=== PATIENT | female | born 2000 | race Two or more races ===

== ENCOUNTER → 2022-07-19 08:29 | Outpatient (BNVA) | payer OTHER, MEDICAID, SELFPAY | PROVIDERS: PCP Internal Medicine; Visit Provider Hospitalist | DX: Z13.89 Encounter for screening for other disorder (principal) ==

== ENCOUNTER 2022-11-28 08:22 | Outpatient (REF) | payer OTHER, MEDICAID, SELFPAY ==
[2022-11-28 08:43] LABS: MANUAL DIFF FLAG NO
[2022-11-28 08:46] LABS: Venous Blood Gas Refer to POC result
[2022-11-28 08:48] LABS: VBG pCO2 36 mmHg; VBG pH 7.41 (7.32-7.43)
[2022-11-28 08:49] LABS: VBG Base Excess -0.3 mmol/L; VBG HCO3 23 mmol/L (22-26); VBG pO2 55 mmHg
[2022-11-28 09:06] LABS: Basophils Percent Auto 0.4 % (0-2); Eosinophils Absolute Auto 0.1 X10*3/uL (0.0-0.4); Eosinophils Percent Auto 0.9 % (0-4); Hematocrit 45.8 % (37.0-47.0); Hemoglobin 15.1 g/dl (12.0-16.0); Imm Gran Abs Auto 0.03 X10*3/uL (0.00-0.03); Imm Gran Pct Auto 0.3 % (0.0-0.4); Lymphocytes Absolute Auto 2.5 X10*3/uL (1.2-4.9); Lymphocytes Percent Auto 22.2 % (20-40); Mean Corpuscular Hemoglobin 29.5 pg (27.0-33.0); Mean Corpuscular Volume 89.5 fL (80.0-98.0); Mean Platelet Volume 10.8 fL (9.4-12.3); Monocytes Absolute Auto 0.8 X10*3/uL (0.1-1.2); Neutrophils Absolute Auto 7.7 x10*3/uL (2.0-8.3); Neutrophils Percent Auto 69.2 % (45-73); Platelet Count 229 X10*3/uL (160-400); Red Blood Count 5.12 X10*6/uL (4.20-5.50); Red Cell Distribution Width 11.8 % (11.0-16.0); White Blood Count 11.1 X10*3/uL (4.8-10.8)
[2022-11-28 09:40] LABS: Erythrocyte Sedimentation Rate 5 MM/HR (0-20)
[2022-11-30 17:13] LABS: IgA 168 mg/dL (47-310); IgG 1094 mg/dL (600-1640); IgM 70 mg/dL (50-300)
== END 2022-11-28 08:23 | disposition home or self-care (01) ==
LOC: HO.LAB 08:22
PROVIDERS: PCP Internal Medicine; Visit Provider Hospitalist
DX: J96.10 Chronic respiratory failure, unspecified whether with hypoxia or hypercapnia (principal); J98.4 Other disorders of lung; J45.40 Moderate persistent asthma, uncomplicated; M41.9 Scoliosis, unspecified; G47.34 Idiopathic sleep related nonobstructive alveolar hypoventilation; T17.908D Unspecified foreign body in respiratory tract, part unspecified causing other injury, subsequent encounter
CPT/HCPCS: 36415; 82784; 82803; 85025; 85652

== ENCOUNTER 2023-07-07 14:09 | Outpatient (AMB) | payer OTHER, MEDICAID, SELFPAY ==
[2023-07-07 14:10] VITALS: BMI 21.3
--- NOTE | 2023-07-07 14:10 | MHC.OFFVIS ---
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 The patient does have a hard time with her secretions. She does have a cough assist and a percussion vest to help with her secretions. Right now she is very agitated and crying and therefore she is producing more secretions and she is more congested. The family states that this is because she is out of the home. Usually she is clear. She does use the DuoNeb to 4 times a day. She does have oxygen at home. She recently underwent a sleep study because of a history of sleep apnea. Her in-lab study was limited although her AHI was only 3.5 a and her lowest saturation was 84%. Her end-tidal CO2 was normal. The patient did desaturate for about 5 minutes below 88%. She does have oxygen at home she should use it at nighttime. We briefly spoke about tracheostomy. She has had discussions in the past with her providers in felt that she did not need 1 at the time. We did talk about different she to a shins where tracheostomy will be important. Partly if she is having issues with antibodies to to hypercarbia or did as having issues with her secretions. 11/28/2022 the patient is here for a pulmonary follow-up visit. The patient is feeling little better. Less secretions. She has been doing better from a respiratory status. The patient does have a percussion vest and also a cough assist device if she needs it and she really has needed it. She is taking the glycopyrrolate about twice since we last spoke which is reassuring. We also placed her in a promotility agent, azithromycin. This also helped her. We did check an EKG inhaler QT is high normal so therefore since the patient is doing well will hold off on azithromycin for now. If she becomes symptomatic once we stop it did the family can call we can always restarted at a lower dose. As far as her blood work the patient did have a venous gas which is reassuring with a normal pCO2 and a normal pH. The rest of the blood work still pending. 07/07/2023 this is a telehealth visit the patient is nonverbal. I am speaking to her mom and also the nurse caregiver. She has doing a lot better from the secretions. She continues use the nebulized therapy with percussion vest. She also continues with the allergy medicines. We had stopped the azithromycin due to an elevated QT interval. Seems to be doing well off that. We did look at the blood work demonstrating a normal pCO2 normal pH. No need for noninvasive ventilation. Will go ahead and request repeat blood work sometime in the fall 2023. However, the patient has any new issues prior to that she will call for an earlier assessment. [facility] Medical History (Updated 07/07/23 @ 14:30 by Louie Prince MD) Asthma Seizures Encephalitis due to human herpes simplex virus (HSV) Scoliosis Nocturnal hypoxia Chronic respiratory failure Aspiration into airway Chronic restrictive lung disease Social History (Updated 07/19/22 @ 08:41 by MORTEZA Goyal) Patient Tobacco Use Status: Never used Tobacco Review of Systems Const Unobtainable due to mental condition and Unobtainable due to mental status Physical Exam Vital Signs: BMI result Body Mass Index 21.3 Const General: comfortable Assessment & Plan Assessment & Plan (1) Chronic restrictive lung disease: Code(s): J98.4 - Other disorders of lung (2) Aspiration into airway: Code(s): T17.908A - Unspecified foreign body in respiratory tract, part unspecified causing other injury, initial encounter Qualifiers: Encounter type: subsequent encounter Qualified Code(s): T17.908D - Unspecified foreign body in respiratory tract, part unspecified causing other injury, subsequent encounter (3) Nocturnal hypoxia: Code(s): G47.34 - Idiopathic sleep related nonobstructive alveolar hypoventilation (4) Scoliosis: Code(s): M41.9 - Scoliosis, unspecified Qualifiers: Scoliosis type: unspecified scoliosis Spinal region: unspecified Qualified Code(s): M41.9 - Scoliosis, unspecified (5) Asthma: Code(s): J45.909 - Unspecified asthma, uncomplicated Qualifiers: Asthma severity: moderate Asthma persistence: persistent Asthma complication type: uncomplicated Qualified Code(s): J45.40 - Moderate persistent asthma, uncomplicated Plan Continue CPT with cough assist and percussion vest stopped azithromycin 250mg MWF for promotility agent and chronic bronchitis, QTc high normal. If symptomatic off med, then restart at a lower dose Robinal as needed to decrease oral secretions Consider Chlorhexadine mouthwash Nebulizer therapy astelin nasal spray repeat bloodwork 6-8 months continue singulair/claritin F/U 6-8 months Orders: Orders Basic Metabolic Panel Today G47.34 - Idiopathic sleep related nonobstructive alveolar hypoventilation, J45.909 - Unspecified asthma, uncomplicated, J98.4 - Other disorders of lung Venous Blood Gas Today G47.34 - Idiopathic sleep related nonobstructive alveolar hypoventilation, J45.909 - Unspecified asthma, uncomplicated, J98.4 - Other disorders of lung Complete Blood Count Auto Diff Today G47.34 - Idiopathic sleep related nonobstructive alveolar hypoventilation, J45.909 - Unspecified asthma, uncomplicated, J98.4 - Other disorders of lung Immunoglobulin E Today G47.34 - Idiopathic sleep related nonobstructive alveolar hypoventilation, J45.909 - Unspecified asthma, uncomplicated, J98.4 - Other disorders of lung Medications: Changed From azelastine 2 sprays intranasal DAILY PRN allergies To azelastine 2 sprays intranasal DAILY 30 mL 11RF 30 days Telehealth Telehealth Location of provider rendering services: practice address Location of patient: address on file Patient Identification confirmed using: Name, : Yes Telehealth method: voice only Patient verbally consented to treatment: Yes Patient verbally consented to billing insurance company: Yes Patient informed of any privacy concerns related to visit: Yes Coding Level of Care Code Tele Est Pt Level 4 (28277) Diagnoses Chronic restrictive lung disease J98.4 Aspiration into airway, subsequent encounter T17.908D Encounter type: subsequent encounter Nocturnal hypoxia G47.34 Scoliosis, unspecified scoliosis type, unspecified spinal region M41.9 Scoliosis type: unspecified scoliosis Spinal region: unspecified Moderate persistent asthma without complication J45.40 Asthma severity: moderate Asthma persistence: persistent Asthma complication type: uncomplicated Time Spent (min) 15
== END 2023-07-07 14:21 | disposition home or self-care (01) ==
LOC: HO.HPS 14:09
PROVIDERS: PCP Internal Medicine; Visit Provider Hospitalist
DX: J98.4 Other disorders of lung (principal); T17.908D Unspecified foreign body in respiratory tract, part unspecified causing other injury, subsequent encounter; G47.34 Idiopathic sleep related nonobstructive alveolar hypoventilation; J45.40 Moderate persistent asthma, uncomplicated
CPT/HCPCS: 99442

== ENCOUNTER → 2023-07-07 14:09 | Outpatient (BNVA) | payer OTHER, MEDICAID, SELFPAY | PROVIDERS: PCP Internal Medicine; Visit Provider Hospitalist ==

== ENCOUNTER 2024-09-03 13:35 | Outpatient (AMB) | payer OTHER, MEDICAID, SELFPAY ==
[2024-09-03 13:38] VITALS: BP 100/62; PULSE 115; O2SAT 98
--- NOTE | 2024-09-03 13:38 | MHC.OFFVIS ---
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 The patient does have a hard time with her secretions. She does have a cough assist and a percussion vest to help with her secretions. Right now she is very agitated and crying and therefore she is producing more secretions and she is more congested. The family states that this is because she is out of the home. Usually she is clear. She does use the DuoNeb to 4 times a day. She does have oxygen at home. She recently underwent a sleep study because of a history of sleep apnea. Her in-lab study was limited although her AHI was only 3.5 a and her lowest saturation was 84%. Her end-tidal CO2 was normal. The patient did desaturate for about 5 minutes below 88%. She does have oxygen at home she should use it at nighttime. We briefly spoke about tracheostomy. She has had discussions in the past with her providers in felt that she did not need 1 at the time. We did talk about different she to a shins where tracheostomy will be important. Partly if she is having issues with antibodies to to hypercarbia or did as having issues with her secretions. 11/28/2022 the patient is here for a pulmonary follow-up visit. The patient is feeling little better. Less secretions. She has been doing better from a respiratory status. The patient does have a percussion vest and also a cough assist device if she needs it and she really has needed it. She is taking the glycopyrrolate about twice since we last spoke which is reassuring. We also placed her in a promotility agent, azithromycin. This also helped her. We did check an EKG inhaler QT is high normal so therefore since the patient is doing well will hold off on azithromycin for now. If she becomes symptomatic once we stop it did the family can call we can always restarted at a lower dose. As far as her blood work the patient did have a venous gas which is reassuring with a normal pCO2 and a normal pH. The rest of the blood work still pending. 07/07/2023 this is a telehealth visit the patient is nonverbal. I am speaking to her mom and also the nurse caregiver. She has doing a lot better from the secretions. She continues use the nebulized therapy with percussion vest. She also continues with the allergy medicines. We had stopped the azithromycin due to an elevated QT interval. Seems to be doing well off that. We did look at the blood work demonstrating a normal pCO2 normal pH. No need for noninvasive ventilation. Will go ahead and request repeat blood work sometime in the fall 2023. However, the patient has any new issues prior to that she will call for an earlier assessment. 09/03/2024 the patient is here for a pulmonary follow-up visit. Since we last spoke the patient did develop COVID and did require hospitalization. She was at [facility]. She did have a chest x-ray that was personally by me demonstrating some haziness in the left hemithorax suggesting pneumonia. Ultimately she did well she did require oxygen for few days present she weaned off. She is doing better with secretions. Now going to the spring season she does have more secretions and allergies. She does have allergy medicines that she uses as needed. As far as his secretions she is handling them well. She has not had to using Robinul. She does have a percussion vest and also has a cough assist device. Although has not had to use a cough assist device at this time. She does get manual chest PT as well. [facility] Medical History (Updated 07/07/23 @ 14:30 by Louie Prince MD) Asthma Seizures Encephalitis due to human herpes simplex virus (HSV) Scoliosis Nocturnal hypoxia Chronic respiratory failure Aspiration into airway Chronic restrictive lung disease Social History Patient Tobacco Use Status: Never used Tobacco Review of Systems Const Unobtainable due to mental condition and Unobtainable due to mental status Physical Exam Vital Signs: Last Vital Signs Pulse 115 H 09/03/24 13:38 BP 100/62 09/03/24 13:38 Pulse Ox 98 09/03/24 13:38 Oxygen Delivery Method Room Air 09/03/24 13:38 Const General: Physically active (crying) Orientation/consciousness: No patient oriented x3 HEENT Head: Yes normocephalic and No Acrocyanosis present Teeth and gingiva: dentition normal Eyes Other: closed Neck Neck: Yes trachea midline Chest Chest palpation & inspection: other (congested/crepitations) Resp Auscultation: no crackles, no rales and diminished lung sounds Cardio Rate: regular rate Rhythm: regular rhythm Heart sounds: S1 normal heart sound present and S2 normal heart sound present GI Auscultation: normal bowel sounds Skin General skin exam: rashes and/or lesions noted Neuro General: No patient oriented x3 Extrem General: No clubbing, No cyanosis and No edema Assessment & Plan Assessment & Plan (1) Chronic restrictive lung disease: Code(s): J98.4 - Other disorders of lung Category: Medical (2) Aspiration into airway: Code(s): T17.908A - Unspecified foreign body in respiratory tract, part unspecified causing other injury, initial encounter Category: Medical Qualifiers: Encounter type: subsequent encounter Qualified Code(s): T17.908D - Unspecified foreign body in respiratory tract, part unspecified causing other injury, subsequent encounter (3) Nocturnal hypoxia: Code(s): G47.34 - Idiopathic sleep related nonobstructive alveolar hypoventilation Category: Medical (4) Scoliosis: Code(s): M41.9 - Scoliosis, unspecified Category: Medical Qualifiers: Scoliosis type: unspecified scoliosis Spinal region: unspecified Qualified Code(s): M41.9 - Scoliosis, unspecified (5) Asthma: Code(s): J45.909 - Unspecified asthma, uncomplicated Category: Medical Qualifiers: Asthma complication type: uncomplicated Asthma persistence: persistent Asthma severity: moderate Qualified Code(s): J45.40 - Moderate persistent asthma, uncomplicated Plan Continue CPT with cough assist and percussion vest/wrap stopped azithromycin 250mg MWF for promotility agent and chronic bronchitis, QTc high normal. If symptomatic off med, then restart at a lower dose Robinal as needed to decrease oral secretions Consider Chlorhexadine mouthwash Nebulizer therapy astelin nasal spray continue singulair/claritin F/U 12 months Coding Level of Care Code Est Pt Level 4 (62028) Complex EM visit Add On G2211 Diagnoses Chronic restrictive lung disease J98.4 Aspiration into airway, subsequent encounter T17.908D Encounter type: subsequent encounter Nocturnal hypoxia G47.34 Scoliosis, unspecified scoliosis type, unspecified spinal region M41.9 Scoliosis type: unspecified scoliosis Spinal region: unspecified Moderate persistent asthma without complication J45.40 Asthma complication type: uncomplicated Asthma persistence: persistent Asthma severity: moderate Time Spent (min) 18
== END 2024-09-03 14:23 | disposition home or self-care (01) ==
LOC: HO.HPS 13:36
PROVIDERS: PCP Internal Medicine; Visit Provider Hospitalist
DX: J98.4 Other disorders of lung (principal); T17.908D Unspecified foreign body in respiratory tract, part unspecified causing other injury, subsequent encounter; G47.34 Idiopathic sleep related nonobstructive alveolar hypoventilation; M41.9 Scoliosis, unspecified; J45.40 Moderate persistent asthma, uncomplicated
CPT/HCPCS: 99214

== ENCOUNTER → 2024-09-03 13:35 | Outpatient (BNVA) | payer OTHER, MEDICAID, SELFPAY | PROVIDERS: PCP Internal Medicine; Visit Provider Hospitalist ==